=== PATIENT | female | born 1945 | race American Indian/Alaskan Native ===

== ENCOUNTER 2017-07-18 09:06 | Outpatient (CLI) | payer MEDICARE ==
--- NOTE | 2017-07-18 10:55 | Ultrasound Report ---
Renal sonogram: Next History: Hematuria. Findings: Right kidney measures 9.1 x 5.8 x 4.2 cm. Cortical thickness 1.1 cm. There is suspicion of mildly dilated intrarenal collecting system. No distinct mass identified. Left kidney measures 10.4 x 5.2 x 5 cm. Cortical thickness 1.0 cm. There is a cyst identified measuring 2.5 x 2.9 x 3.4 cm at the upper outer cortex. Bladder is inadequately distended. No mass within the bladder. Impression: No suspicion of mild dilatation of the internal collecting system right kidney. Cyst upper pole left kidney.
== END 2017-07-18 09:07 | disposition home or self-care (01) ==
LOC: US 09:06
PROVIDERS: ATTEND Internal Medicine
DX: N28.1 Cyst of kidney, acquired (principal); N32.89 Other specified disorders of bladder
CPT/HCPCS: 76770

== ENCOUNTER 2018-08-02 09:47 | Outpatient (CLI) | payer MEDICARE ==
[2018-08-02 10:41] LABS: Bilirubin,Urine NEG (Negative); Blood,Urine SM (Negative); Color,Urine Straw (Yellow); Protein,Urine <15 mg/dL mg/dL (Negative); Urobilinogen,Urine < 2.0 mg/dL (<2.0); WBC,Urine < 1.0 /HPF (0.0-6.0)
[2018-08-02 10:56] LABS: Chol/HDL Ratio 1.96 %
== END 2018-08-02 09:48 | disposition home or self-care (01) ==
LOC: LAB 09:47
PROVIDERS: ATTEND Internal Medicine
DX: Z13.220 Encounter for screening for lipoid disorders (principal); E11.9 Type 2 diabetes mellitus without complications; I10 Essential (primary) hypertension
CPT/HCPCS: 36415; 80061; 81001; 83036

== ENCOUNTER 2018-08-28 09:12 | Outpatient (CLI) | payer MEDICARE ==
--- NOTE | 2018-08-28 09:56 | Mammography Report ---
BONE DEXA:08/28/18 CLINICAL: Postmenopausal. No comparison. TECHNIQUE: Two site bone DEXA performed on an Hologic scanner. FINDINGS: The average BMD of the lumbar spine L1-L4 is 0.849g/cm squared with a T-score of -1.8 and a Z-score of -0.2. The average BMD of the left hip is 0.897g/cm squared with a T-score of -0.4 and a Z-score of +0.4. IMPRESSION: 1. WHO classification: Osteopenia with increased fracture risk based on both spine and left hip measurements. 2. The FRAX 10 year fracture probability for a major osteoporotic fracture is 4.5%. 4. The FRAX 10 year fracture probability for hip fracture is 0.7%. Note: FRAX version 3.01. Fracture probability calculated for an untreated patient. Fracture probability may be lower if the patient has received treatment. RECOMMENDATION: Clinical correlation and routine screening. DEFINITIONS: BMD = Bone Mineral Density T-score = BMD related to mean peak bone mass of young adult (mean expressed in Standard Deviation) Z-score = Age matched BMD expressed in SD World Health Organization (WHO) Diagnostic Criteria Normal T-score > -1 SD Osteopenia T-score between -1 and -2.4 SD Osteoporosis T-score -2.5 SD or below NOTE: BMD is not the only risk factor for fracture; also consider factors such as the patient's age, risk of falling, previous osteoporotic fracture, family history of osteoporotic fractures, current smoker, and low body weight. All treatment decisions require clinical judgment and consideration of individual patient factors, including patient preferences, comorbidities, previous drug use and risk factors not captured in the FRAX model (e.g. frailty, falls, vitamin D deficiency, increased bone turnover, interval significant decline in BMD). Fracture probability is calculated for an untreated patient. Fracture probability may be lower if the patient has received treatment. Z-scores are not calculated if >80 years of age.
== END 2018-08-28 09:13 | disposition home or self-care (01) ==
LOC: MAMMO 09:12
PROVIDERS: ATTEND Internal Medicine
DX: M85.88 Other specified disorders of bone density and structure, other site (principal); M81.8 Other osteoporosis without current pathological fracture; I10 Essential (primary) hypertension; Z78.0 Asymptomatic menopausal state
CPT/HCPCS: 77080

== ENCOUNTER 2018-10-21 12:04 | Outpatient (CLI) | payer MEDICARE ==
--- NOTE | 2018-10-21 13:40 | XRay Report ---
CHEST 2 VIEWS INDICATION: R07.9 CHEST PAIN,UNSPECIFIED. COMPARISON: None FINDINGS: Support devices: None. Heart: Within normal limits. Lungs/pleura: No acute air space or interstitial disease. No pneumothorax. Additional findings: None. IMPRESSION: Unremarkable chest films. Signer Name: Timothy Snyder Jr, MD Signed: 10/21/2018 1:36 PM Workstation Name: [id number]
== END 2018-10-21 12:05 | disposition home or self-care (01) ==
LOC: XRAY 12:04
PROVIDERS: ATTEND Internal Medicine
DX: R07.9 Chest pain, unspecified (principal)
CPT/HCPCS: 71046

== ENCOUNTER 2018-12-20 10:02 | Outpatient (CLI) | payer MEDICARE ==
[2018-12-20 11:13] LABS: Chol/HDL Ratio 1.94 %
== END 2018-12-20 10:03 | disposition home or self-care (01) ==
LOC: LAB 10:02
PROVIDERS: ATTEND Internal Medicine
DX: E11.9 Type 2 diabetes mellitus without complications (principal); E78.5 Hyperlipidemia, unspecified; M19.90 Unspecified osteoarthritis, unspecified site
CPT/HCPCS: 36415; 80061; 83036

== ENCOUNTER 2019-01-03 12:24 | Outpatient (CLI) | payer MEDICARE ==
[2019-01-03 13:18] LABS: Bacteria,Urine 1+ /HPF (Negative); WBC,Urine < 1.0 /HPF (0.0-6.0)
[2019-01-03 13:20] LABS: Bilirubin,Urine Negative (Negative); Blood,Urine Small (Negative); Color,Urine Yellow (Yellow); Protein,Urine <15 mg/dL mg/dL (Negative); Urobilinogen,Urine < 2.0 mg/dL (<2.0)
== END 2019-01-03 12:25 | disposition home or self-care (01) ==
LOC: LAB 12:24
PROVIDERS: ATTEND Internal Medicine
DX: N39.0 Urinary tract infection, site not specified (principal); E11.9 Type 2 diabetes mellitus without complications; I25.10 Atherosclerotic heart disease of native coronary artery without angina pectoris; I10 Essential (primary) hypertension; M19.90 Unspecified osteoarthritis, unspecified site
CPT/HCPCS: 81001

== ENCOUNTER 2019-01-30 09:37 | Outpatient (CLI) | payer MEDICARE ==
--- NOTE | 2019-01-30 15:19 | Mammography Report ---
DIGITAL SCREENING MAMMOGRAM WITH CAD, 01/30/2019 INDICATION: Routine screening mammography. TECHNIQUE: Digital bilateral 2D mammography was obtained in the craniocaudal and mediolateral obliq ue projections. This examination was interpreted with the benefit of Computer-Aided Detection analysi s. COMPARISON: 01/29/2018 FINDINGS: Breast Density: The breasts are almost entirely fatty. There is no evidence of dominant mass, suspicious calcifications or architectural distortion in eithe r breast. IMPRESSION: No mammographic evidence of malignancy. Follow up recommendation: Routine yearly BI-RADS Category 1: Negative. A "normal" or negative report should not discourage follow up or biopsy of a clinically significant f inding. A written summary of these findings will be mailed to the patient. The patient will be entered into a mammography reporting system which will generate a reminder letter for the patient's next appointmen t at the appropriate interval. The [employer] recommends yearly mammograms starting at age 40 and continuing as l ruben as a woman is in good health. Breast MRI is recommended for women with an approximate 20-25% or greater lifetime risk of breast cancer, including women with a strong family history of breast or [place]va [place] cancer or who have been treated for Hodgkin's disease. Signer Name: Raghu Grant MD Signed: 01/30/2019 3:15 PM Workstation Name: [id number]
== END 2019-01-30 09:38 | disposition home or self-care (01) ==
LOC: MAMMO 09:37
PROVIDERS: ATTEND Internal Medicine
DX: Z12.31 Encounter for screening mammogram for malignant neoplasm of breast (principal)
CPT/HCPCS: 77067

== ENCOUNTER 2019-04-01 08:48 | Outpatient (CLI) | payer MEDICARE ==
--- NOTE | 2019-04-01 09:44 | XRay Report ---
CHEST 2 VIEWS INDICATION: COUGH. COMPARISON: 10/21/2018 FINDINGS: Support devices: None. Heart: Within normal limits. Pulmonary vasculature: Normal. Lungs/pleura: No acute air space or interstitial disease. No pneumothorax. Additional findings: Hypertensive changes in the aorta. Degenerative change in the spine. IMPRESSION: 1. No acute findings. Signer Name: Raghu Grant MD Signed: 04/01/2019 9:40 AM Workstation Name: [id number]
== END 2019-04-01 08:49 | disposition home or self-care (01) ==
LOC: XRAY 08:48
PROVIDERS: ATTEND Internal Medicine
DX: R05 Cough (principal); M47.814 Spondylosis without myelopathy or radiculopathy, thoracic region; I77.89 Other specified disorders of arteries and arterioles
CPT/HCPCS: 71046

== ENCOUNTER 2020-01-05 11:56 | Outpatient (CLI) | payer MEDICARE ==
[2020-01-05 12:45] LABS: Bilirubin,Urine NEG (Negative); Blood,Urine NEG (Negative); Color,Urine Straw (Yellow); Mucus,Urine FEW /HPF; Protein,Urine <15 mg/dL mg/dL (Negative); Urobilinogen,Urine < 2.0 mg/dL (<2.0); WBC,Urine < 1.0 /HPF (0.0-6.0)
[2020-01-05 13:07] LABS: Basophils % (Auto) 0.5 % (0.0-1.8); Eosinophils % (Auto) 0.8 % (0.0-4.3); Hemoglobin 11.3 gm/dl (10.1-14.3); Lymphocytes # (Auto) 1.8 K/mm3 (1.2-5.4); Lymphocytes % (Auto) 34.7 % (13.4-35.0); Mean Corpuscular HGB Conc 33 % (30-34); Mean Corpuscular Volume 80 fl (79-97); Monocytes # (Auto) 0.3 K/mm3 (0.0-0.8); Platelet Count 268 K/mm3 (140-440); Red Blood Count 4.23 M/mm3 (3.65-5.03); Red Cell Distribution Width 15.9 % (13.2-15.2)
[2020-01-05 13:28] LABS: Alanine Aminotransferase 14 units/L (7-56); Albumin 4.5 g/dL (3.9-5); Blood Urea Nitrogen 12 mg/dL (7-17); Calcium 10.1 mg/dL (8.4-10.2); Chol/HDL Ratio 1.99 %; HDL Cholesterol 100 mg/dL (40-59); Hemolysis Index 1; LDL Cholesterol,Direct 103 mg/dL (50-130)
[2020-01-05 14:06] LABS: BUN/Creatinine Ratio 24
[2020-01-10 14:01] LABS: Vitamin D, 25-OH, D2 <4 ng/mL
== END 2020-01-05 11:57 | disposition home or self-care (01) ==
LOC: LAB 11:56
PROVIDERS: ATTEND Internal Medicine
DX: Z00.00 Encounter for general adult medical examination without abnormal findings (principal); E11.65 Type 2 diabetes mellitus with hyperglycemia; E78.5 Hyperlipidemia, unspecified; Z13.29 Encounter for screening for other suspected endocrine disorder; N39.0 Urinary tract infection, site not specified; E56.9 Vitamin deficiency, unspecified
CPT/HCPCS: 36415; 80053; 80061; 81001; 82306; 82607; 83036; 84443; 85025

== ENCOUNTER 2020-02-02 10:22 | Outpatient (CLI) | payer MEDICARE ==
--- NOTE | 2020-02-02 17:45 | Mammography Report ---
DIGITAL SCREENING MAMMOGRAM WITH CAD, 02/02/2020 CLINICAL INFORMATION / INDICATION: Routine screening mammography. TECHNIQUE: Digital bilateral 2D mammography was obtained in the craniocaudal and mediolateral obliqu e projections. This examination was interpreted with the benefit of Computer-Aided Detection analysis . COMPARISON: 01/30/2019, 01/29/2018 FINDINGS: Breast Density: There are scattered areas of fibroglandular density. No dominant mass, suspicious calcifications, or architectural distortion in either breast. IMPRESSION: No mammographic evidence of malignancy. Follow up recommendation: Routine yearly BI-RADS Category 1: Negative. A "normal" or negative report should not discourage follow up or biopsy of a clinically significant f inding. A written summary of these findings will be mailed to the patient. The patient will be entered into a mammography reporting system which will generate a reminder letter for the patient's next appointmen t at the appropriate interval. The [employer] recommends yearly mammograms starting at age 40 and continuing as l ruben as a woman is in good health. Breast MRI is recommended for women with an approximate 20-25% or greater lifetime risk of breast cancer, including women with a strong family history of breast or [place]va [place] cancer or who have been treated for Hodgkin's disease. Signer Name: August Mcmullen MD Signed: 02/02/2020 5:41 PM Workstation Name: [id number]
== END 2020-02-02 10:23 | disposition home or self-care (01) ==
LOC: MAMMO 10:22
PROVIDERS: ATTEND Internal Medicine
DX: Z12.31 Encounter for screening mammogram for malignant neoplasm of breast (principal)
CPT/HCPCS: 77067

== ENCOUNTER 2020-06-24 09:33 | Outpatient (CLI) | payer MEDICARE ==
[2020-06-24 10:44] LABS: C-Reactive Protein 2.5 mg/dL (0.00-1.30); Uric Acid 3.2 mg/dL (3.5-7.6)
== END 2020-06-24 09:34 | disposition home or self-care (01) ==
LOC: LAB 09:33
PROVIDERS: ATTEND Internal Medicine
DX: N39.0 Urinary tract infection, site not specified (principal); M62.830 Muscle spasm of back; M47.816 Spondylosis without myelopathy or radiculopathy, lumbar region
CPT/HCPCS: 36415; 84550; 85652; 86038; 86140; 86431

== ENCOUNTER 2020-09-15 09:41 | Outpatient (CLI) | payer MEDICARE ==
--- NOTE | 2020-09-15 11:40 | Magnetic Resonance Report ---
MRI cervical spine without contrast INDICATION: Neck pain FINDINGS: Alignment appears normal. Craniocervical junction appears normal. No cord signal abnormalit y is seen. CT-C3: No spinal canal narrowing or neuroforaminal narrowing. C3-C4: Uncovertebral degenerative change. No spinal canal narrowing or neuroforaminal narrowing. Mild endplate changes at C3-C4. C4-C5: Posterior disc osteophyte. No spinal canal narrowing or neuroforaminal narrowing. C5-C6: Disc desiccation with posterior disc osteophyte and uncovertebral degenerative change. No aki re neuroforaminal narrowing. C6-C7 and C7-T1 show no spinal canal narrowing or neuroforaminal narrowing. IMPRESSION: Endplate change with disc desiccation small posterior disc osteophytes at several levels throughout c ervical spine. Please see above. Signer Name: Itz Chavis MD Signed: 09/15/2020 11:35 AM Workstation Name: [id number]
== END 2020-09-15 09:42 | disposition home or self-care (01) ==
LOC: MRI 09:41
PROVIDERS: ATTEND Internal Medicine
DX: M54.12 Radiculopathy, cervical region (principal); M25.78 Osteophyte, vertebrae
CPT/HCPCS: 72141

== ENCOUNTER 2020-11-08 10:08 | Outpatient (CLI) | payer MEDICARE ==
[2020-11-08 10:52] LABS: Chol/HDL Ratio 1.94 %
== END 2020-11-08 10:09 | disposition home or self-care (01) ==
LOC: LAB 10:08
PROVIDERS: ATTEND Internal Medicine
DX: E11.65 Type 2 diabetes mellitus with hyperglycemia (principal); E78.5 Hyperlipidemia, unspecified
CPT/HCPCS: 36415; 80061; 83036

== ENCOUNTER 2021-04-05 10:53 | Outpatient (CLI) | payer MEDICARE ==
[2021-04-05 12:29] LABS: Basophils % (Auto) 0.9 % (0.0-1.8); Eosinophils # (Auto) 0.1 K/mm3 (0.0-0.4); Eosinophils % (Auto) 1.3 % (0.0-4.3); Hematocrit 34.3 % (30.3-42.9); Hemoglobin 10.5 gm/dl (10.1-14.3); Lymphocytes # (Auto) 1.8 K/mm3 (1.2-5.4); Mean Corpuscular HGB Conc 31 % (30-34); Mean Corpuscular Volume 80 fl (79-97); Monocytes # (Auto) 0.4 K/mm3 (0.0-0.8); Monocytes % (Auto) 7.1 % (0.0-7.3); Platelet Count 244 K/mm3 (140-440); Red Blood Count 4.31 M/mm3 (3.65-5.03); Red Cell Distribution Width 15.9 % (13.2-15.2)
[2021-04-05 12:42] LABS: Alanine Aminotransferase 13 units/L (7-56); Albumin 4.4 g/dL (3.9-5); Blood Urea Nitrogen 11 mg/dL (7-17); Chol/HDL Ratio 2.02 %; HDL Cholesterol 98 mg/dL (40-59); Hemolysis Index 4; LDL Cholesterol,Direct 98 mg/dL (50-130)
[2021-04-05 12:44] LABS: BUN/Creatinine Ratio 22
--- NOTE | 2021-04-05 19:06 | Mammography Report ---
DIGITAL SCREENING MAMMOGRAM WITH CAD, 04/05/2021 CLINICAL INFORMATION / INDICATION: Routine screening mammography. SCREENING MAMMOGRAM TECHNIQUE: Digital bilateral 2D mammography was obtained in the craniocaudal and mediolateral obliqu e projections. This examination was interpreted with the benefit of Computer-Aided Detection analysis . COMPARISON: 02/02/2020. FINDINGS: Breast Density: There are scattered areas of fibroglandular density. No dominant mass, suspicious calcifications, or architectural distortion in either breast. IMPRESSION: No mammographic evidence of malignancy. Follow up recommendation: Routine yearly BI-RADS Category 1: NEGATIVE A "normal" or negative report should not discourage follow up or biopsy of a clinically significant f inding. A written summary of these findings will be mailed to the patient. The patient will be entered into a mammography reporting system which will generate a reminder letter for the patient's next appointmen t at the appropriate interval. The [employer] recommends yearly mammograms starting at age 40 and continuing as l ruben as a woman is in good health. Breast MRI is recommended for women with an approximate 20-25% or greater lifetime risk of breast cancer, including women with a strong family history of breast or [place]va [place] cancer or who have been treated for Hodgkin's disease. Signer Name: Jefferson Adam MD Signed: 04/05/2021 6:55 PM Workstation Name: [id number]
[2021-04-05 19:57] LABS: Creatinine,Urine 46.8 mg/dL (0.1-20.0)
[2021-04-05 19:59] LABS: Microalbumin/Creatinine Ratio 25.6 ug/mg
== END 2021-04-05 10:54 | disposition home or self-care (01) ==
LOC: MAMMO 10:53
PROVIDERS: ATTEND Internal Medicine
DX: Z12.31 Encounter for screening mammogram for malignant neoplasm of breast (principal); Z00.00 Encounter for general adult medical examination without abnormal findings; E55.9 Vitamin D deficiency, unspecified; E78.5 Hyperlipidemia, unspecified; R53.83 Other fatigue; E11.40 Type 2 diabetes mellitus with diabetic neuropathy, unspecified
CPT/HCPCS: 36415; 77067; 80053; 80061; 82043; 82306; 83036; 84443; 85025

== ENCOUNTER 2021-05-04 08:52 | Outpatient (CLI) | payer MEDICARE ==
--- NOTE | 2021-05-04 10:42 | XRay Report ---
Right knee 2 views INDICATION: Knee pain FINDINGS: There is patellofemoral and medial compartment degenerative change with joint space narrowi ng. Calcifications are seen within the heel aspect of the soft tissues and posteriorly. No large join t effusion is seen. Signer Name: Itz Chavis MD Signed: 05/04/2021 9:43 AM Workstation Name: [id number]
== END 2021-05-04 08:53 | disposition home or self-care (01) ==
LOC: XRAY 08:52
PROVIDERS: ATTEND Internal Medicine
DX: M17.11 Unilateral primary osteoarthritis, right knee (principal)

== ENCOUNTER 2021-08-03 11:09 | Emergency (ER) | payer MEDICARE ==
[2021-08-03] MEDS ORDERED: ASPIRIN 325 MG TAB PO ONE (11:19)
[2021-08-03 11:43] LABS: Basophils # (Auto) 0.1 K/mm3 (0.0-0.1); Eosinophils # (Auto) 0.1 K/mm3 (0.0-0.4); Hemoglobin 11.4 gm/dl (10.1-14.3); Lymphocytes # (Auto) 2.1 K/mm3 (1.2-5.4); Lymphocytes % (Auto) 37.8 % (13.4-35.0); Mean Corpuscular HGB Conc 34 % (30-34); Mean Corpuscular Volume 78 fl (79-97); Monocytes # (Auto) 0.3 K/mm3 (0.0-0.8); Monocytes % (Auto) 5.7 % (0.0-7.3); Platelet Count 254 K/mm3 (140-440); Red Blood Count 4.34 M/mm3 (3.65-5.03); Red Cell Distribution Width 15.5 % (13.2-15.2)
[2021-08-03 12:30] LABS: Alanine Aminotransferase 15 units/L (7-56); Albumin 4.5 g/dL (3.9-5); Blood Urea Nitrogen 14 mg/dL (7-17); Calcium 9.7 mg/dL (8.4-10.2); Hemolysis Index 1
[2021-08-03 12:31] LABS: BUN/Creatinine Ratio 28
--- NOTE | 2021-08-03 12:47 | XRay Report ---
CHEST 2 VIEWS INDICATION / CLINICAL INFORMATION: chest pain. COMPARISON: 04/01/2019 FINDINGS: SUPPORT DEVICES: None. HEART / MEDIASTINUM: No significant abnormality. LUNGS / PLEURA: No significant pulmonary or pleural abnormality. No pneumothorax. ADDITIONAL FINDINGS: No significant additional findings. IMPRESSION: 1. No acute findings. Signer Name: Petros Aquino MD Signed: 08/03/2021 12:43 PM Workstation Name: [id number]
[2021-08-03 23:32] VITALS: BP 151/71
[2021-08-03] MEDS ORDERED: ACETAMINOPHEN W/CODEINE 300-30 MG TAB PO ONE (23:40)
--- NOTE | 2021-08-03 23:43 | Emergency Department Report ---
ED Chest Pain HPI - General Chief Complaint: Chest Pain Stated Complaint: CHEST PAIN Time Seen by Provider: 08/03/21 21:53 Source: patient Mode of arrival: Ambulatory Limitations: No Limitations - History of Present Illness MD Complaint: chest pain -: Gradual, days(s) Onset: during rest Pain Location: left chest Pain Radiation: none Severity scale (0 -10): 0 Consistency: intermittent Improves With: nothing - Related Data Allergies Allergy/AdvReac Type Severity Reaction Status Date / Time Sulfa (Sulfonamide AdvReac Itching Verified 08/03/21 22:03 Antibiotics) tramadol AdvReac Nausea Verified 08/03/21 22:03 Heart Score - HEART Score History: Slightly suspicious EKG: Normal Age: > 65 Risk factors: 1-2 risk factors Troponin: < normal limit HEART Score: 3 - EKG Read Time Time EKG Completed: 11:11 EKG Read Time: 11:11 - Critical Actions Critical Actions: 0-3 pts:0.9-1.7%risk of adverse cardiac event.Candidate for discharge ED Review of Systems ROS: Stated complaint: CHEST PAIN Other details as noted in HPI Constitutional: denies: chills, fever Eyes: denies: eye pain, eye discharge, vision change ENT: denies: ear pain, throat pain Respiratory: denies: cough, shortness of breath, wheezing Cardiovascular: denies: chest pain, palpitations Endocrine: no symptoms reported Gastrointestinal: denies: abdominal pain, nausea, diarrhea Genitourinary: denies: urgency, dysuria, discharge Musculoskeletal: denies: back pain, joint swelling, arthralgia Skin: denies: rash, lesions Neurological: denies: headache, weakness, paresthesias Psychiatric: denies: anxiety, depression Hematological/Lymphatic: denies: easy bleeding, easy bruising ED Past Medical Hx - Past Medical History Previous Medical History?: Yes Hx Diabetes: Yes Hx Arthritis: Yes - Surgical History Past Surgical History?: No - Social History Smoking Status: Never Smoker ED Physical Exam - General Limitations: No Limitations General appearance: alert, in no apparent distress - Head Head exam: Present: atraumatic, normocephalic - Eye Eye exam: Present: normal appearance - ENT ENT exam: Present: mucous membranes moist - Neck Neck exam: Present: normal inspection - Respiratory Respiratory exam: Present: normal lung sounds bilaterally. Absent: respiratory distress - Cardiovascular Cardiovascular Exam: Present: regular rate, normal rhythm. Absent: systolic murmur, diastolic murmur, rubs, gallop - GI/Abdominal GI/Abdominal exam: Present: soft, normal bowel sounds - Extremities Exam Extremities exam: Present: normal inspection - Back Exam Back exam: Present: normal inspection - Neurological Exam Neurological exam: Present: alert, oriented X3 - Psychiatric Psychiatric exam: Present: normal affect, normal mood - Skin Skin exam: Present: warm, dry, intact, normal color. Absent: rash ED Course Vital Signs 08/03/21 08/03/21 11:17 23:29 Temperature 98.5 F Pulse Rate 66 58 L Respiratory 16 14 Rate Blood Pressure 193/72 151/71 [Left] O2 Sat by Pulse 99 98 Oximetry ED Medical Decision Making - Lab Data Result diagrams: 08/03/21 11:25 08/03/21 11:25 - EKG Data -: EKG Interpreted by Me EKG shows normal: sinus rhythm Rate: normal - EKG Data Interpretation: no acute changes - Radiology Data Radiology results: report reviewed, image reviewed - Medical Decision Making work up negative trop negative , x ray clear repeat trop negative , pain seems MSL Critical care attestation.: If time is entered above; I have spent that time in minutes in the direct care of this critically ill patient, excluding procedure time. ED Disposition Clinical Impression: Chest pain Disposition: 01 HOME / SELF CARE / HOMELESS Is pt being admited?: No Does the pt Need Aspirin: No Condition: Stable Instructions: Nonspecific Chest Pain, Adult
--- NOTE | 2021-08-05 09:59 | Electrocardiograph Report ---
[facility] Test Date: 2021-08-03 Test Time: 11:11:59 Pat Name: KENDRA DRUMMOND Department: Room: Gender: F Placement Manager: GEN : 1945 Requested By: ED DOC Order Number: [id number] Reading MD: Kris Jaramillo Measurements Intervals [place] Rate: 71 P: 78 LA: 159 QRS: 3 QRSD: 93 T: 47 QT: 416 QTc: 454 Interpretive Statements Sinus rhythm NSST'S No previous ECG available for comparison Electronically Signed On 08-05-2021 9:59:22 EDT by Kris Jaramillo
== END 2021-08-04 00:21 | disposition home or self-care (01) ==
LOC: ED 11:09
DX: R07.89 Other chest pain (principal); E11.9 Type 2 diabetes mellitus without complications; M19.90 Unspecified osteoarthritis, unspecified site; Z88.2 Allergy status to sulfonamides; Z88.8 Allergy status to other drugs, medicaments and biological substances; Z79.899 Other long term (current) drug therapy
CPT/HCPCS: 36415; 71046; 80053; 84484; 85025; 93005; 99284

== ENCOUNTER 2021-08-25 09:18 | Outpatient (CLI) | payer MEDICARE | END 2021-08-25 09:19 | disposition home or self-care (01) | LOC: LAB 09:18 | PROVIDERS: ATTEND Internal Medicine | DX: E11.65 Type 2 diabetes mellitus with hyperglycemia (principal) | CPT/HCPCS: 36415; 83036 ==